=== PATIENT | female | born 1995 | race Caucasian/White ===

== ENCOUNTER 2024-12-03 17:33 | Inpatient (IN) | payer OTHER, SELFPAY ==
[2024-12-03] VITALS (13 sets, daily range): BP systolic 100–123; BP diastolic 58–77; PULSE 56–83; RESP 16–20; TEMP 36.1–36.9; O2SAT 97–98; BMI 27.3
[2024-12-03] MEDS: Lactated Ringers 1,000 ML 50 ML IV (18:00)
--- NOTE | 2024-12-03 18:01 | PCM.HP.OB ---
HPI - General General Date of Admission: 12/03/24 HPI Narrative ROSALEE ROBLERO, is a 28 F G1 who presents in spontaneous, active labor. Maternal Data Information JUSTICE Calculator Estimated Delivery Date Method Current WG Current Estimate 12/05/24 Manual 39w 5d PFSH [facility] Home Medications ?Medication ?Instructions ?Recorded ?Last Taken ?Type aspirin 81 mg tablet,delayed 81 mg PO DAILY pregnanc 12/03/24 12/02/24 History release famotidine 20 mg tablet (Acid 20 mg PO DAILY aqcid reflux 12/03/24 12/03/24 History Controller) vit no.37-iron fum 29 mg tab PO pregnanc 12/03/24 12/02/24 History iron-folic acid 1 mg chewable tablet (PreNata) Allergy/AdvReac Type Severity Reaction Status Date / Time No Known Allergies Allergy Verified 12/03/24 17:54 Family History (Updated 12/03/24 @ 18:08 by Anu Cedillo) Father AA (aortic aneurysm) NST FHR Rate Baby A Baseline: 140 Variability:: Moderate Accelerations:: 15 x 15 Decelerations:: None NST Reactive:: Yes FHR Category:: Category I Uterine Activity:: TOCO reading every 2-3 minutes ROS Eyes Eyes: Denies blurry vision, change in vision or spots in vision ENT HEENT: Denies dizziness or headache(s) Cardiovascular Cardiovascular: Denies abdominal pain, chest pain or dyspnea Respiratory/Chest Respiratory/Chest: Denies cough, dyspnea, shortness of breath at rest or shortness of breath with exertion Gastrointestinal Gastrointestinal: Denies abdominal pain, diarrhea or vomiting Genitourinary Genitourinary: Denies change in urinary stream, difficulty urinating or dysuria Musculoskeletal Musculoskeletal: Reports none Integumentary Integumentary: Denies rash Neurologic Neurologic: Denies dizziness, headache(s), memory loss or weakness Psychiatric Psychiatric: Reports none Vital Signs Vital Signs Vital Signs: 12/03/24 17:22 12/03/24 17:22 12/03/24 17:23 Temperature Pulse Rate 83 Respiratory Rate 17 Blood Pressure 114/77 BP Systolic 114 BP Diastolic 77 Pulse Ox 12/03/24 17:23 12/03/24 17:23 Temperature 98.1 F Pulse Rate Respiratory Rate Blood Pressure BP Systolic BP Diastolic Pulse Ox 98 Weight Weight: 135 lb 6 oz Body Mass Index (BMI) 27.3 Physical Exam Const alert, oriented x3 and no apparent distress General Appearance: cooperative Orientation / Consciousness: awake Exam Limitations: no limitations HEENT normocephalic Head and Scalp: normal to inspection Eyes General Eye: normal appearance of both eyes Neck full ROM and no lymphadenopathy Lymph Lymphatic: no lymphadenopathy noted Chest inspection of chest normal Resp normal respiratory effort, normal air movement and clear to auscultation bilaterally Effort and Inspection: able to speak in complete sentences and symmetric chest movement Cardio regular rate and regular rhythm GI normal to inspection, nondistended, normoactive bowel sounds Manual OB Exam: presentation cephalic Back/Spine normal ROM Extremity full ROM and no calf tenderness Skin no rashes or lesions noted General Skin Exam: no breakdown Neuro oriented x3 and CN's II-XII intact bilaterally Psych mental status grossly normal and thought process normal Labs Labs Labs: No Data to Display Assessment & Plan (1) 39 weeks gestation of : (2) Spontaneous onset of labor: PLAN: Plan CE Admit to labor and delivery Routine labs GBS negative Epidural/ pain medications when indicated Dr. Shelton notified of admission and is collaborating physician
[2024-12-03 18:40] LABS: Absolute Lymphocyte Count 2.01 X10^3/uL (0.83-4.51); Basophil# 0.04 X10^3/uL; Basophil% 0.5 % (0-1); Eosinophil# 0.07 X10^3/uL; Eosinophils% 0.8 % (0-5); Hematocrit 36.6 % (37-47); Hemoglobin 12.3 g/dL (12.0-15.0); Lymphocyte # 2.01 X10^3/ul (0.83-4.51); Lymphocyte % 22.7 % (19-41); Mean Corp Hgb Conc 33.6 g/dL (32-36); Mean Corpuscular Hgb 30.1 pg (27.0-32.0); Mean Corpuscular Volume 89.5 fL (81-99); Mean Platelet Vol. 11.4 fl (6.2-12.0); Monocyte# 0.72 X10^3/uL; Monocyte% 8.1 % (0-10); NRBC Flagged by Analyzer 0 % (0-5); Neutrophil # 5.95 X10^3/uL (2.7-7.7); Neutrophil % 67.3 % (47-70); Platelet Count 213 K/mm3 (150-450); RBC Distribution Width CV 14.2 % (11.6-14.6); RBC Distribution Width SD 45.7 fl (35.1-43.9); Red Blood Count 4.09 M/mm3 (4.2-5.4); White Blood Count 8.8 K/mm3 (4.4-11.0)
[2024-12-03 18:55] LABS: Syphilis Antibodies Non-reactive
[2024-12-03] MEDS: Oxytocin 10 UNITS/ML Vial IM (22:27)
[2024-12-03] MEDS: Oxytocin 15 Units/NS 250ml 15 UNITS/250 ML IV.SOLN 83 UNITS IV (22:28)
--- NOTE | 2024-12-03 22:46 | OB.VAGDELI_ITS ---
Assessment & Plan (1) (spontaneous vaginal delivery): (2) Care and examination of lactating mother: Maternal Data Information JUSTICE Calculator Estimated Delivery Date Method Current WG Current Estimate 12/05/24 Manual 39w 5d Doctor Who Attended Delivery: Marisol Terrazas Vaginal Delivery Maternal Presentation Maternal Presentation: Active Labor Maternal Presentation: G1 at 39.5 with spontaneous onset of labor. Type of Induction: Amniotomy (Augmentation) Vaginal Delivery Information Procedure Performed: Spontaneous Vaginal Delivery Date of Procedure: 12/03/24 Pre-Procedure Diagnosis: Term gestation, spontaneous onset of labor Post-Procedure Diagnosis: , Live female Type of anesthesia: None Estimated Blood Loss: 350 Time of Delivery: 22:24 Findings Description of procedure: Patient quickly progressed to complete dilation. heart tones down in the 90's. Patient initially in hands and knees when started pushing but repositioned patient to lithotomy. Good reaction with scalp stimulation. Patient bearing down with good maternal effort. Automobile Body Repairer in room for delivery. With good maternal effort, head delivered. Double nuchal cord noted. Delivered remainder of body via somersault maneuver. Cord clamped and cut immediately due to poor tone and handed off to nursing staff under warmer. Double nuchal cord noted. Pitocin IV started for active management of the third stage of labor. Placenta delivered spontaneously and intact. After inspection, vagina and perineum are intact. Vaginal sweep performed. Fundus is firm 2 below U and bleeding is hemostatic. Sponge and sharps counts correct. Patient assisted up to bathroom to empty bladder. Dr. Shelton notified of delivery. Routine post orders placed. Presentation: Vertex Amniotic Membrane Rupture Type: Artificial Amniotic Fluid Description: Thick meconium Placental Delivery Description: Spontaneous Placenta Disposition: [facility] Specimen collected: No Cord Vessel Description: 3 Vessels Cord Entanglement: Around neck x 2, tight Nuchal Cord Compression: Without compression A Gender: Female (1 minute): 8 (5 minute): 9 Delayed Cord Clamping: No Curator Of Education packager machine: No Post Vaginal Deli Medications given after delivery: IV Pitocin Episiotomy Description: None Laceration: None Complication Complications: No
[2024-12-04] VITALS (13 sets, daily range): BP systolic 91–121; BP diastolic 50–76; PULSE 58–84; RESP 15–20; TEMP 36.3–37.1; O2SAT 97
[2024-12-04] MEDS: Naproxen 500 MG Tablet PO ×2 (00:53→13:56)
--- NOTE | 2024-12-04 07:02 | PN.OBGYN_ITS ---
Subjective Subjective Patient seen at bedside. Ambulating and voiding without difficulty. with support. Denies any pain at this time. Anticipate discharge home tomorrow. Objective Data Objective Data Vital Signs: Vital Signs Temp Pulse Resp BP Pulse Ox 97.6 F L 82 20 H 91/52 L 97 12/04/24 00:49 12/04/24 04:22 12/04/24 00:49 12/04/24 04:22 12/04/24 04:22 Weight: 135 lb 6 oz Body Mass Index (BMI) 27.3 Intake & Output: Intake and Output for Last 24 Hours 12/02/24 12/03/24 12/04/24 23:59 23:59 23:59 Intake Total 425.62 / 425.62 229.63 / 229.63 Output Total 350 / 350 Balance 425.62 / 425.62 -120.37 / -120.37 Lab / Micro Data Attestation: I reviewed the patient's lab results. 12/03/24 17:45 Labs: Laboratory Results - last 24 hr 12/03/24 17:45: WBC 8.8, RBC 4.09 L, Hgb 12.3, Hct 36.6 L, MCV 89.5, MCH 30.1, MCHC 33.6, RDW Std Deviation 45.7 H, RDW Coeff of [place] 14.2, Plt Count 213, MPV 11.4, Immature Gran % (Auto) 0.600, Neut % (Auto) 67.3, Lymph % (Auto) 22.7, [place] % (Auto) 8.1, Eos % (Auto) 0.8, Baso % (Auto) 0.5, Absolute Neuts (auto) 6.0, Absolute Lymphs (auto) 2.01, Nucleated RBC % 0, Syphilis Total Ab Non- reactive, Blood Type A POSITIVE, Antibody Screen NEGATIVE ROS Eyes Eyes: Denies blurry vision, change in vision or spots in vision ENT HEENT: Denies dizziness or headache(s) Cardiovascular Cardiovascular: Denies abdominal pain, chest pain or dyspnea Respiratory/Chest Respiratory/Chest: Denies cough, dyspnea, shortness of breath at rest or shortness of breath with exertion Gastrointestinal Gastrointestinal: Denies abdominal pain, diarrhea or vomiting Genitourinary Genitourinary: Denies change in urinary stream, difficulty urinating or dysuria Musculoskeletal Musculoskeletal: Reports none Integumentary Integumentary: Denies rash Neurologic Neurologic: Denies dizziness, headache(s), memory loss or weakness Physical Exam Const alert and no apparent distress General Appearance: cooperative and comfortable Exam Limitations: no limitations HEENT normocephalic Eyes General Eye: normal appearance of both eyes Neck full ROM General: normal visual inspection Chest Chest: symmetrical chest wall rise Resp normal respiratory effort and normal air movement Effort and Inspection: symmetric chest movement Auscultation: clear to auscultation bilaterally Cardio regular rate and regular rhythm GI normal to inspection, nondistended, normoactive bowel sounds Back/Spine normal ROM Extremity full ROM and no calf tenderness General Extremity: normal exam except as noted Skin no rashes or lesions noted Neuro oriented x3 Speech: speech normal Psych mental status grossly normal Thought Process: normal thought process Assessment & Plan (1) Care and examination of lactating mother: (2) (spontaneous vaginal delivery): PLAN: Plan PPD 1 support Pain control
[2024-12-05 00:57] VITALS: BP 92/57; PULSE 76
[2024-12-05 01:04] VITALS: BP 92/57; PULSE 76; RESP 18; TEMP 36.9; O2SAT 98
--- NOTE | 2024-12-05 06:41 | PCM.PN.OB ---
Subjective Subjective Pain well-controlled. Average lochia. Objective Data Objective Data Vital Signs: Vital Signs Temp Pulse Resp BP Pulse Ox O2 Del Method 98.5 F 76 18 92/57 L 98 Room Air 12/05/24 01:04 12/05/24 01:04 12/05/24 01:04 12/05/24 01:04 12/05/24 01:04 12/05/24 01:04 Oxygen Delivery Method Room Air Weight: 61.405 kg Body Mass Index (BMI) 27.3 Intake & Output: Intake and Output for Last 24 Hours 12/03/24 12/04/24 12/05/24 23:59 23:59 23:59 Intake Total 425.62 / 425.62 229.63 / 229.63 Output Total 550 / 550 Balance 425.62 / 425.62 -320.37 / -320.37 Lab / Micro Data 12/03/24 17:45 Physical Exam Const alert and no apparent distress Narrative: Fundus firm, below umbilicus. Assessment & Plan (1) (spontaneous vaginal delivery): PLAN: day #2 status post vaginal delivery. is breast-feeding and doing well. Patient is doing well and desires discharge home.
--- NOTE | 2024-12-05 06:43 | PCM.DC.SUM ---
Providers Date of Admission: 12/03/24 Primary Care Physician: No Primary Care Phys Reason For Visit: VAG Diagnosis Discharge Diagnosis (1) (spontaneous vaginal delivery): Status: Acute Code(s): O80 - Encounter for full-term uncomplicated delivery Plan: day #2 status post vaginal delivery. is breast-feeding and doing well. Patient is doing well and desires discharge home. Medications at Discharge Home Medications famotidine 20 mg tablet (Acid Controller) 20 mg PO DAILY aqcid reflux 12/03/24 vit no.37-iron fum 29 mg iron-folic acid 1 mg chewable tablet (PreNata) tab PO pregnanc 12/03/24 Hospital Course Operations None Procedures - (Spontaneous vaginal delivery on 12/03/2024.) Summary of Care Provided Minutes Spent on Discharge: 18 Hospital Course: 28-year-old female admitted at 39-5/7 weeks gestation on 12/03/2024 in spontaneous labor. She has spontaneous vaginal delivery without complication or lacerations on 12/03/2024. On 12/05/2024 she was ambulating, urinating and tolerating regular diet and was ready for discharge home with routine instructions and follow-up in the office in 1 in 6 weeks or as needed. Weight / BMI Weight Weight: 61.405 kg Body Mass Index (BMI) 27.3 ABG / Lab / Microbiology Data 12/03/24 17:45 D/C Instructions Discharge Diet: No restrictions May resume sexual activity in: 6 weeks DC O2, CPAP, BIPAP Needs Home O2 Discharge instructions: No Please Follow Up With: Marisol Terrazas CNM When: Follow up with our office in 1 and 6 weeks or as needed. [phone] Meaningful Use Info Meaningful Use Meaningful Use Diagnoses (Choose all that apply): None applicable Ischemic Stroke Statin Dosing Therapy Reference: STATIN DOSE THERAPY REFERENCE: * Patients > 75 years receive moderate or high dose statin therapy. * Patients 75 years or YOUNGER should receive HIGH intensity statin dose unless contraindicated. You will be required to document reason for non-treatment if statin daily dose does not meet guidelines. HIGH DOSE STATIN THERAPY DAILY Atorvastatin > than or = to 40 mg Rosuvastatin > than or = to 20 mg Amlodipine + Atorvastatin > than or = to 2.5/40 mg Ezetimibe + Simvastatin 10/80 mg Simvastatin 80mg Discharge Plan Admission Admit Date/Time: 12/03/24 17:33 Primary Reason for Your Visit: Labor and vaginal delivery Attending Provider: Marisol Terrazas Primary Care Provider: Care Physician,No Primary Discharge Orders/Prescriptions Prescriptions: Continued famotidine [Acid Controller] 20 mg tablet 20 mg PO DAILY PreNata 29 mg iron- 1 mg tablet,chewable PO Discontinued aspirin 81 mg tablet,delayed release (DR/EC) 81 mg PO DAILY Referrals / Follow Up: Care Physician,No Primary [Primary Care Provider] - Disposition Disposition (needs filled in before D/C Order can be placed): Home, Self Care
[2024-12-05 07:52] VITALS: BP 111/63; PULSE 70; PULSE 89; PULSE 95; RESP 16; TEMP 36.6; O2SAT 98
--- NOTE | 2024-12-11 14:10 | NURSING ---
Follow up Phone Call: Patient reports she is feeling well with no s+s of pp complications. Patients bleeding has decreases to only using a small pad. is feeding well especially after her appointment. No questions or concerns at this time and was satisfied with her care.
== END 2024-12-05 09:50 | disposition home or self-care (01) | DRG 807 ==
LOC: WPOUT 17:37 → WP 17:37
PROVIDERS: Admitting Provider Advanced Practice Midwife; Referring Provider Advanced Practice Midwife; Visit Provider Advanced Practice Midwife
DX: O69.1XX0 Labor and delivery complicated by cord around neck, with compression, not applicable or unspecified (principal); Z37.0 Single live birth; O77.0 Labor and delivery complicated by meconium in amniotic fluid; Z3A.39 39 weeks gestation of pregnancy
CPT/HCPCS: 59025; 59050; 85025; 86780; 86850; 86900; 86901